=== PATIENT | female | born 1960 | race Caucasian/White ===

== ENCOUNTER → 2016-08-11 | Outpatient (REF) | payer OTHER | LOC: M LAB REF 08:31 | PROVIDERS: ATTEND Physician Assistant Medical | DX: K90.0 Celiac disease (principal) ==

== ENCOUNTER → 2016-12-26 | Outpatient (REF) | payer OTHER ==
[2016-12-26 13:52] LABS: ALBUMIN 4.1 GM/DL (3.2-5.2); ALBUMIN/GLOBULIN RATIO 1.86 (1.00-1.93); ALKALINE PHOSPHATASE 65 U/L (45-117); ALT/SGPT 19 U/L (12-78); ANION GAP 7 MEQ/L (8-16); AST/SGOT 14 U/L (15-37); BILIRUBIN,TOTAL 0.4 MG/DL (0.2-1.0); BLOOD UREA NITROGEN 10 MG/DL (7-18); CARBON DIOXIDE LEVEL 27 MEQ/L (21-32); CHLORIDE LEVEL 110 MEQ/L (98-107); CHOLESTEROL LEVEL 237 MG/DL (<200); CREATININE FOR GFR 0.63 MG/DL (0.55-1.02); GLOMERULAR FILTRATION RATE > 60.0 (>51); GLUCOSE, FASTING 103 MG/DL (70-105); POTASSIUM SERUM 4.4 MEQ/L (3.5-5.1); SODIUM LEVEL 144 MEQ/L (136-145); TOTAL PROTEIN 6.3 GM/DL (6.4-8.2); TRIGLYCERIDES LEVEL 61 MG/DL (<150)
== END ==
LOC: M SFHCPLAZ 09:26
PROVIDERS: ATTEND Physician Assistant
DX: E78.5 Hyperlipidemia, unspecified (principal); K90.0 Celiac disease; H81.09 Meniere's disease, unspecified ear; E55.9 Vitamin D deficiency, unspecified

== ENCOUNTER → 2016-12-26 | Outpatient (CLI) | payer OTHER ==
--- NOTE | 2016-12-26 10:10 | REPMRS ---
Patient History The patient states she had a clinical breast exam in Patient is postmenopausal. Family history of colorectal cancer in mother at age 50 or over and colorectal cancer in 3 maternal uncles at age 50 or over. Digital Woman Screen Mammo: December 26, 2016 - Exam #: [id number] Bilateral CC and MLO view(s) were taken. Technologist: Marcela Christianson, Technologist Prior study comparison: October 15, 2015, digital woman screen mammo performed at [facility]. April 18, 2014, bilateral digital mammo screening bilat, performed at [facility]. FINDINGS: There are scattered fibroglandular densities. There has been no change in the appearance of the mammogram from the prior studies. There is a mild amount of residual fibroglandular tissue which is fairly symmetric. There is no interval development of dominant mass, architectural distortion, or clustered microcalcification suggestive of malignancy. ASSESSMENT: BI-RADS/ACR category 1 mammogram. Negative. Recommendation Routine screening mammogram in 1 year (for women over age 40). This mammogram was interpreted with the aid of an FDA-approved computer-aided dectection system. Electronically Signed By: Levi Bull MD 12/26/16 [id number]
== END ==
LOC: M WHC 08:25
PROVIDERS: ATTEND Nurse Practitioner Family
DX: Z12.31 Encounter for screening mammogram for malignant neoplasm of breast (principal); Z78.0 Asymptomatic menopausal state; Z80.0 Family history of malignant neoplasm of digestive organs

== ENCOUNTER → 2017-02-06 | Outpatient (REF) | payer OTHER | LOC: M SFHCLERA 11:15 | PROVIDERS: ATTEND Dermatology | DX: D23.62 Other benign neoplasm of skin of left upper limb, including shoulder (principal) ==

== ENCOUNTER → 2017-02-13 | Outpatient (CLI) | payer OTHER ==
[~2017-02-13] MED LIST: E-Z-PAQUE 96% w/w SUSP 176GM BTL As Ordered ONE
--- NOTE | 2017-02-13 16:02 | REP ---
SMALL BOWEL FOLLOW THROUGH: The procedure was performed by LACEY Mckeon under the direct supervision of Dr. Bull. Standard barium small bowel series was performed with multiple overhead radiographs. In addition the small bowel was fluoroscopically examined. FINDINGS: The small bowel is normal in course and caliber. There are intrinsic and extrinsic mass lesions identified. The transit time was 2 hours which is within normal limits. During fluoroscopy gentle palpation of the bowel showed it to be freely movable and pliable with no fixed or angulated loops. Spot films of the terminal ileum show it to be within normal limits. IMPRESSION: Unremarkable small bowel series. Fluoroscopy time is 0.33 minutes. Reviewed by LACEY Torres 02/13/2017 04:23 PEdited and Signed by Levi Bull MD 02/14/2017 08:35 A
== END ==
LOC: M RAD 10:16
PROVIDERS: ATTEND Physician Assistant Medical
DX: K90.0 Celiac disease (principal)

== ENCOUNTER → 2017-03-03 | Outpatient (REF) | payer OTHER | LOC: M LAB REF 10:30 | PROVIDERS: ATTEND Physician Assistant Medical | DX: K90.0 Celiac disease (principal) ==

== ENCOUNTER 2017-11-04 18:33 | Emergency (ER) | payer OTHER ==
[2017-11-04] MEDS: IBUPROFEN 800 MG TAB PO (20:40)
== END 2017-11-04 21:54 | disposition home or self-care (01) ==
LOC: M ED 18:33
DX: S82.452A Displaced comminuted fracture of shaft of left fibula, initial encounter for closed fracture (principal); W10.9XXA Fall (on) (from) unspecified stairs and steps, initial encounter; Y92.89 Other specified places as the place of occurrence of the external cause; Z88.2 Allergy status to sulfonamides
CPT/HCPCS: 73564

== ENCOUNTER → 2017-12-27 | Outpatient (CLI) | payer OTHER | LOC: M WHC 10:55 | DX: Z12.31 Encounter for screening mammogram for malignant neoplasm of breast (principal); K90.0 Celiac disease ==

== ENCOUNTER → 2018-02-20 | Outpatient (REF) | payer OTHER ==
[2018-02-20 16:18] LABS: D-DIMER QUANT < 270.0 ng/ml (<500)
[2018-02-20 16:40] LABS: ALBUMIN/GLOBULIN RATIO 1.43 (1.00-1.93); ALKALINE PHOSPHATASE 73 U/L (45-117); ALT/SGPT 18 U/L (12-78); ANION GAP 9 MEQ/L (8-16); AST/SGOT 11 U/L (7-37); BILIRUBIN,TOTAL 0.3 MG/DL (0.2-1.0); BLOOD UREA NITROGEN 10 MG/DL (7-18); CALCIUM LEVEL 9.4 MG/DL (8.5-10.1); CARBON DIOXIDE LEVEL 28 MEQ/L (21-32); CHLORIDE LEVEL 109 MEQ/L (98-107); GLOMERULAR FILTRATION RATE > 60.0 (>51); GLUCOSE, FASTING 89 MG/DL (70-100); POTASSIUM SERUM 4.6 MEQ/L (3.5-5.1); SODIUM LEVEL 146 MEQ/L (136-145); TOTAL PROTEIN 6.8 GM/DL (6.4-8.2)
[2018-02-20 16:49] LABS: PTH INTACT 61.4 PG/ML (18.5-88.0)
[2018-02-24 14:16] LABS: ALK PHOSPHATASE BONE SPECIFIC 14.8 ug/L (.)
== END ==
LOC: M SFHCPLAZ 12:14
DX: M79.89 Other specified soft tissue disorders (principal)

== ENCOUNTER → 2018-03-03 | Outpatient (CLI) | payer OTHER ==
[2018-03-06 14:22] LABS: TISSUE TRANSGLUTAMINASE IgA <2 U/mL (0-3)
== END ==
LOC: M ADAMS 11:53
DX: K90.0 Celiac disease (principal)
CPT/HCPCS: 86256

== ENCOUNTER 2018-03-06 12:22 | Outpatient (CLI) | payer OTHER ==
[2018-03-06] MEDS: ZOLEDRONIC ACID 5 MG in APPROPRIATE DILUENT 1 EA IV (13:23)
== END 2018-03-06 14:10 | disposition home or self-care (01) ==
LOC: M INFU 12:22
DX: M81.0 Age-related osteoporosis without current pathological fracture (principal); I25.10 Atherosclerotic heart disease of native coronary artery without angina pectoris; E78.5 Hyperlipidemia, unspecified; K90.0 Celiac disease; H93.13 Tinnitus, bilateral; M26.609 Unspecified temporomandibular joint disorder, unspecified side; M25.559 Pain in unspecified hip
CPT/HCPCS: J3489

== ENCOUNTER 2018-03-09 02:58 | Emergency (ER) | payer OTHER ==
[2018-03-09] MEDS: ONDANSETRON 4MG/2ML VIAL (J2405) IV (03:45)
[2018-03-09] MEDS: NS 1,000 ML IV (03:45)
[2018-03-09] MEDS: MORPHINE 4 MG/ML 1ML VIAL/SYRINGE (J2270) IV ×2 (03:54→04:19)
[2018-03-09 04:05] LABS: BASO % 0.4 % (0.0-1.0); EOS % 0.4 % (0.0-3.0); HEMATOCRIT 39.7 % (36.0-47.0); HEMOGLOBIN 13.5 g/dl (12.0-15.5); IMMATURE GRANULOCYTE % 0.3 % (0-3.0); LYMPH # 0.6 10^3/uL (1.5-4.5); LYMPH % 6.4 % (24.0-44.0); MEAN CORPUSCULAR HEMOGLOBIN 32.1 pg (27.0-33.0); MEAN CORPUSCULAR VOLUME 94.5 fl (80.0-96.0); MONO # 0.4 10^3/uL (0.0-0.8); MONO % 4.5 % (0.0-5.0); NEUTROPHILS # 7.8 10^3/uL (1.8-7.7); RED CELL DISTRIBUTION WIDTH 12.4 % (11.5-14.5); WHITE BLOOD COUNT 8.9 10^3/uL (4.0-10.0)
[2018-03-09 04:10] LABS: LACTIC ACID SEPSIS PROTOCOL 0.9 MMOL/L (0.4-2.0)
[2018-03-09 04:11] LABS: ALBUMIN 3.7 GM/DL (3.2-5.2); ALKALINE PHOSPHATASE 56 U/L (45-117); ALT/SGPT 26 U/L (12-78); ANION GAP 12 MEQ/L (8-16); AST/SGOT 25 U/L (7-37); BILIRUBIN,DIRECT < 0.1 MG/DL (0.0-0.2); BILIRUBIN,TOTAL 0.3 MG/DL (0.2-1.0); BLOOD UREA NITROGEN 12 MG/DL (7-18); CALCIUM LEVEL 8.1 MG/DL (8.5-10.1); CARBON DIOXIDE LEVEL 26 MEQ/L (21-32); CHLORIDE LEVEL 105 MEQ/L (98-107); CPK CREATINE PHOSPHOKINASE 61 U/L (26-192); CREATININE FOR GFR 0.71 MG/DL (0.55-1.30); GLOMERULAR FILTRATION RATE > 60.0 (>51); GLUCOSE, FASTING 125 MG/DL (70-100); LIPASE 102 U/L (73-393); POTASSIUM SERUM 3.2 MEQ/L (3.5-5.1); SODIUM LEVEL 143 MEQ/L (136-145); TOTAL PROTEIN 7.4 GM/DL (6.4-8.2); TROPONIN I < 0.02 NG/ML (< 0.10)
[2018-03-09 04:12] LABS: CK-MB VALUE MASS 1.1 NG/ML (<3.6)
[2018-03-09 04:32] LABS: POS COUNT POS FLAG
[2018-03-09] MEDS ORDERED: ISOVUE-370 76% 100ML VIAL (Q9967) As Ordered (04:35)
[2018-03-09] MEDS: POTASSIUM CHLORIDE 10 MEQ SR TABLET PO (06:13)
== END 2018-03-09 06:26 | disposition home or self-care (01) ==
LOC: M ED 02:58
DX: E87.6 Hypokalemia (principal); R94.31 Abnormal electrocardiogram [ECG] [EKG]; M81.0 Age-related osteoporosis without current pathological fracture; H81.09 Meniere's disease, unspecified ear; E55.9 Vitamin D deficiency, unspecified; Z80.0 Family history of malignant neoplasm of digestive organs; Z88.1 Allergy status to other antibiotic agents; Z88.2 Allergy status to sulfonamides
CPT/HCPCS: J2270

== ENCOUNTER → 2018-03-27 | Outpatient (REF) | payer OTHER ==
[2018-03-27 14:05] LABS: ANION GAP 10 MEQ/L (8-16); BLOOD UREA NITROGEN 13 MG/DL (7-18); CALCIUM LEVEL 9.4 MG/DL (8.5-10.1); CARBON DIOXIDE LEVEL 26 MEQ/L (21-32); CHLORIDE LEVEL 108 MEQ/L (98-107); CREATININE FOR GFR 0.62 MG/DL (0.55-1.30); GLOMERULAR FILTRATION RATE > 60.0 (>51); GLUCOSE, FASTING 93 MG/DL (70-100); MAGNESIUM LEVEL 2.3 MG/DL (1.8-2.4); POTASSIUM SERUM 4.5 MEQ/L (3.5-5.1); SODIUM LEVEL 144 MEQ/L (136-145)
== END ==
LOC: M SFHCADAM 08:05
DX: E87.6 Hypokalemia (principal); M81.0 Age-related osteoporosis without current pathological fracture

== ENCOUNTER 2018-05-14 07:35 | Day surgery (SDC) | payer OTHER ==
[2018-05-14] MEDS ORDERED: LIDOCAINE 2% INJ 100 MG/5 ML SDV (FOR ANES.) As Ordered (07:43)
[2018-05-14] MEDS ORDERED: PROPOFOL 200 MG/20 ML VIAL As Ordered ×2 (08:07→08:57)
[2018-05-14] MEDS ORDERED: NS 1,000 ML IV (08:30)
== END 2018-05-14 09:37 | disposition home or self-care (01) ==
LOC: M OPP 07:35
DX: Z12.11 Encounter for screening for malignant neoplasm of colon (principal); Z86.010 Personal history of colon polyps; Z80.0 Family history of malignant neoplasm of digestive organs; K90.0 Celiac disease; H81.09 Meniere's disease, unspecified ear; Z78.0 Asymptomatic menopausal state; Z91.89 Other specified personal risk factors, not elsewhere classified; Z88.2 Allergy status to sulfonamides; Z88.8 Allergy status to other drugs, medicaments and biological substances; Z83.3 Family history of diabetes mellitus; Z83.79 Family history of other diseases of the digestive system
CPT/HCPCS: 45378

== ENCOUNTER → 2018-05-22 | Outpatient (CLI) | payer OTHER | LOC: M ADAMS 15:24 | DX: M40.204 Unspecified kyphosis, thoracic region (principal); M51.34 Other intervertebral disc degeneration, thoracic region | CPT/HCPCS: 72070 ==

== ENCOUNTER → 2019-02-09 | Outpatient (REF) | payer OTHER ==
[~2019-02-09] MED LIST changes: +CALC600T60 PO; -E-Z-PAQUE 96% w/w SUSP 176GM BTL As Ordered ONE; +VITA200015 PO; +VITA50005 PO; +ZOFR4TAB14 PO
[2019-02-09 10:34] LABS: IONIZED CALCIUM 4.8 MG/DL (4.5-5.3)
[2019-02-09 10:57] LABS: CHOLESTEROL RISK RATIO 2.823 (<5)
[2019-02-11 12:04] LABS: TOTAL 25(OH) VITAMIN D 25.6 NG/ML (30.0-100.0)
== END ==
LOC: M SFHCADAM 08:41
PROVIDERS: ATTEND Family Medicine
DX: M81.0 Age-related osteoporosis without current pathological fracture (principal); Z13.1 Encounter for screening for diabetes mellitus; E78.2 Mixed hyperlipidemia; E55.9 Vitamin D deficiency, unspecified

== ENCOUNTER → 2019-03-14 | Outpatient (REF) | payer OTHER | LOC: M LABDRWAD 18:58 | PROVIDERS: ATTEND Physician Assistant Medical | DX: K90.0 Celiac disease (principal) ==

== ENCOUNTER → 2019-03-22 | Outpatient (CLI) | payer OTHER ==
[~2019-03-22] MED LIST changes: +ISOVUE-370 76% 100ML VIAL (Q9967) As Ordered ONE
--- NOTE | 2019-03-22 14:57 | REP ---
CT ABDOMEN WITH IV BUT WITHOUT ORAL CONTRAST: Dual-phase postcontrast imaging. HISTORY: Adrenal nodule. Comparison CT study March 09, 2018 showed a left adrenal nodule measuring 1.1 x 1.7 cm. The 12-month followup versus a noncontrast CT study were suggested as options. CT CONTRAST DOSE: 100 mL of intravenous Isovue [address] TECHNIQUE: Portal venous phase and 15-minute delayed phase postcontrast images were acquired. [address] FINDINGS: Today's images confirm the presence of an oval-shaped nodular thickening of the left adrenal gland as seen on March 09, 2018. It has not enlarged. The relative adrenal nodule washout kinetics were calculated. 56.5% washout was observed. Values greater than 40% are consistent with benign adrenal adenoma. The lung bases remain clear. Liver and spleen are normal in size homogeneous in texture. No abnormalities noted in the gallbladder or the pancreas. There is a peripheral cortical cyst at the lower pole left kidney projecting posterior to the descending colon, which is unchanged and measuring 4.1 cm in greatest diameter. No hydronephrosis is seen. No renal masses observed. IMPRESSION: Findings consistent with small stable benign left adrenal adenoma. A peripheral cyst lower pole left kidney. This is also unchanged. Electronically Signed by Tyson Calix MD 03/22/2019 03:02 P
== END ==
LOC: M RAD 12:11
PROVIDERS: ATTEND Family Medicine
DX: E27.9 Disorder of adrenal gland, unspecified (principal)

== ENCOUNTER → 2019-06-01 | Outpatient (CLI) | payer OTHER ==
[~2019-06-01] MED LIST changes: -ISOVUE-370 76% 100ML VIAL (Q9967) As Ordered ONE
== END ==
LOC: M LABDRWAD 08:55
PROVIDERS: ATTEND Internal Medicine Endocrinology, Diabetes & Metabolism
DX: E55.9 Vitamin D deficiency, unspecified (principal)

== ENCOUNTER → 2019-06-01 | Outpatient (CLI) | payer OTHER ==
[2019-06-01 17:51] LABS: BASO # 0.1 10^3/uL (0.0-0.2); BASO % 1.1 % (0.0-1.0); EOS # 0.1 10^3/uL (0.0-0.5); EOS % 1.8 % (0.0-3.0); HEMATOCRIT 36.6 % (36.0-47.0); HEMOGLOBIN 11.9 g/dl (12.0-15.5); LYMPH # 1.2 10^3/uL (1.5-5.0); MEAN CORPUSCULAR HEMOGLOBIN 32.2 pg (27.0-33.0); MEAN CORPUSCULAR HGB CONC 32.5 g/dl (32.0-36.5); MEAN CORPUSCULAR VOLUME 98.9 fl (80.0-96.0); MONO # 0.4 10^3/uL (0.0-0.8); MONO % 9.7 % (0.0-5.0); NEUTROPHILS # 2.6 10^3/uL (1.5-8.5); NEUTROPHILS % 59.2 % (36.0-66.0); PLATELET COUNT, AUTOMATED 260 10^3/uL (150-450); WHITE BLOOD COUNT 4.4 10^3/uL (4.0-10.0)
[2019-06-01 18:04] LABS: ALBUMIN 3.9 GM/DL (3.2-5.2); ALT/SGPT 19 U/L (12-78); BILIRUBIN,TOTAL 0.5 MG/DL (0.2-1.0); BLOOD UREA NITROGEN 12 MG/DL (7-18); CALCIUM LEVEL 9.1 MG/DL (8.8-10.2); CARBON DIOXIDE LEVEL 28 MEQ/L (21-32); CHLORIDE LEVEL 109 MEQ/L (98-107); CHOLESTEROL LEVEL 214 MG/DL (<200); CHOLESTEROL RISK RATIO 2.517 (<5); GLOMERULAR FILTRATION RATE > 60.0 (>45); GLUCOSE, FASTING 88 MG/DL (70-100); HDL CHOLESTEROL 85 MG/DL (>40); LDL CHOLESTEROL 120 MG/DL (<100); NON-HDL-C 129 MG/DL; POTASSIUM SERUM 4.7 MEQ/L (3.5-5.1); SODIUM LEVEL 142 MEQ/L (136-145); TOTAL PROTEIN 6.6 GM/DL (6.4-8.2); TRIGLYCERIDES LEVEL 45 MG/DL (<150)
[2019-06-01 18:18] LABS: HEMOGLOBIN A1c 5.3 %
== END ==
LOC: M LABDRWAD 08:52
PROVIDERS: ATTEND Physician Assistant
DX: E78.2 Mixed hyperlipidemia (principal); M81.8 Other osteoporosis without current pathological fracture; R73.01 Impaired fasting glucose

== ENCOUNTER → 2019-12-30 | Outpatient (CLI) | payer OTHER ==
--- NOTE | 2020-01-06 09:05 | DEXA ---
AP SPINE L1 - L4 0.998 -1.2 0.1 LT FEMUR TOTAL 0.848 -1.3 -0.3 LT NECK 0.734 -2.2 -0.9 RT FEMUR TOTAL 0.910 -0.8 0.2 RT NECK 0.792 -1.8 -0.5 TOTAL BODY TOTAL OTHER COMMENTS: There is low bone density of the spine and hips. The density of the spine is increased 10.5% since 12/27/2017. The density of the left hip has increased 2.9% since 12/27/2017. The density of the right hip has increased 5.4% since 12/27/2017. The increased density of the spine does represent a significant change. The increased density of the left hip does represent a significant change. The increased density of the right hip does represent significant change. FOLLOW-UP: Recommendation for the next bone density exam: 2 years. MALDONADO
== END ==
LOC: M WHC 12:47
PROVIDERS: ATTEND Internal Medicine Endocrinology, Diabetes & Metabolism
DX: M85.851 Other specified disorders of bone density and structure, right thigh (principal); M85.852 Other specified disorders of bone density and structure, left thigh; M85.88 Other specified disorders of bone density and structure, other site

== ENCOUNTER → 2020-02-14 | Outpatient (CLI) | payer OTHER ==
--- NOTE | 2020-03-05 09:45 | REPMRS ---
Patient History The patient states she has not had a clinical breast exam in over a year. Patient is postmenopausal. Family history of colorectal cancer at age 50 or over in maternal uncle, colorectal cancer at age 50 or over in maternal uncle, colorectal cancer at age 50 or over in mother, colorectal cancer at age 50 or over in maternal uncle, colorectal cancer at age 50 or over in maternal uncle. No Hormone Replacement Therapy Digital Woman Screen Mammo: February 14, 2020 - Exam #: [id number] Bilateral CC and MLO view(s) were taken. Technologist: Yolanda Lagunas, Technologist Prior study comparison: December 27, 2017, bilateral digital woman screen mammo performed at [facility]. December 26, 2016, digital woman screen mammo performed at [facility]. October 15, 2015, digital woman screen mammo performed at [facility]. FINDINGS: There are scattered fibroglandular densities. The Volpara volumetric breast density category is:B. There has been no change in the appearance of the mammogram from the prior studies. There is a mild amount of scattered fibroglandular density which is fairly symmetric. There is no interval development of dominant mass, architectural distortion, or grouped microcalcification suggestive of malignancy. 3-D tomosynthesis shows no additional findings. Report was delayed due to a protracted computer network disruption experienced by this facility. Assessment: BI-RADS/ACR category 1 mammogram. Negative Mammogram. Recommendation Routine screening mammogram of both breasts in 1 year (for women over age 40). This patient's Lifetime Breast Cancer Risk is estimated at 5.8 %. This mammogram was interpreted with the aid of an FDA-approved computer-aided dectection system. Electronically Signed By: Mahendra Calix MD 03/05/20 0944
== END ==
LOC: M WHC 17:09
PROVIDERS: ATTEND Physician Assistant
DX: Z12.31 Encounter for screening mammogram for malignant neoplasm of breast (principal); Z78.0 Asymptomatic menopausal state

== ENCOUNTER → 2020-06-03 | Outpatient (REF) | payer OTHER ==
[2020-06-03 13:37] LABS: ALBUMIN 3.9 GM/DL (3.2-5.2); ALT/SGPT 18 U/L (12-78); BILIRUBIN,TOTAL 0.5 MG/DL (0.2-1.0); BLOOD UREA NITROGEN 15 MG/DL (7-18); CALCIUM LEVEL 9.7 MG/DL (8.8-10.2); CARBON DIOXIDE LEVEL 30 MEQ/L (21-32); CHLORIDE LEVEL 108 MEQ/L (98-107); CHOLESTEROL LEVEL 251 MG/DL (<200); CHOLESTEROL RISK RATIO 2.788 (<5); GLOMERULAR FILTRATION RATE > 60.0 (>45); GLUCOSE, FASTING 90 MG/DL (70-100); HDL CHOLESTEROL 90 MG/DL (>40); LDL CHOLESTEROL 152 MG/DL (<100); NON-HDL-C 161 MG/DL; POTASSIUM SERUM 4.7 MEQ/L (3.5-5.1); SODIUM LEVEL 142 MEQ/L (136-145); TOTAL PROTEIN 6.4 GM/DL (6.4-8.2); TRIGLYCERIDES LEVEL 46 MG/DL (<150)
== END ==
LOC: M LABDRWAD 12:19
PROVIDERS: ATTEND Physician Assistant Medical
DX: E78.2 Mixed hyperlipidemia (principal); K90.0 Celiac disease

== ENCOUNTER → 2020-06-29 | Outpatient (REF) | payer OTHER | LOC: M LABDRWAD 16:53 | PROVIDERS: ATTEND Nurse Practitioner Family | DX: E55.9 Vitamin D deficiency, unspecified (principal); M85.89 Other specified disorders of bone density and structure, multiple sites ==

== ENCOUNTER → 2020-07-28 | Outpatient (CLI) | payer OTHER ==
--- NOTE | 2020-07-28 17:43 | REP ---
INDICATION: SOLITARY PULMONARY NODULE. COMPARISON: Comparison CT study of the chest July 06, 2020. Left upper lobe pulmonary nodule. TECHNIQUE: Fifty-four minutes following the intravenous injection of a 8.15 mCi dose of F-18 FDG, three-dimensional PET scintigraphy is acquired from the skull base to the proximal thighs. Triplanar noncontrast CT scanning is acquired through the same anatomic range for attenuation correction, and image registration with scan parameters optimized to minimize radiation exposure to the patient. PET scintigraphy and CT datasets were fused and displayed on a workstation with multiplanar and projection display capability. FINDINGS: Head and neck soft tissues are unremarkable. The known pleural based left apical nodular density seen on recent CT study shows no abnormal uptake. Maximum standard uptake value is less than 1, 0.95. No other abnormal hypermetabolic uptake is seen within the chest. No evidence of adenopathy or mediastinal mass seen. In the abdomen and pelvis there is normal distribution of tracer to the liver, spleen, gastrointestinal, and genitourinary systems. There is minimal uptake in the small left adrenal nodule maximum standard uptake value 2.64. This nodule has been stable morphologically since March 09, 2018 and is consistent with a benign adenoma. No other abnormal FDG distribution is seen in the abdomen or pelvis. IMPRESSION: The nodule in the left lung apex shows no abnormal FDG tracer accumulation. Continued follow-up is advised. Minimal uptake is seen in a stable left adrenal nodule consistent with an adenoma. <Electronically signed by Mahendra Calix > 07/28/20 [id number]
== END ==
LOC: M PLARAD 11:24
PROVIDERS: ATTEND Internal Medicine Pulmonary Disease
DX: R91.1 Solitary pulmonary nodule (principal)
CPT/HCPCS: 78815; A9552

== ENCOUNTER → 2021-02-10 | Outpatient (CLI) | payer OTHER ==
--- NOTE | 2021-02-10 12:07 | REP ---
INDICATION: SOLITARY PULMONARY NODULE COMPARISON: Multiple the latest 07/06/2020 also without contrast TECHNIQUE: Standard helical technique without intravenous contrast FINDINGS: The mediastinum and pulmonary lola are stable. No mass or adenopathy has developed. There are no pleural or pericardial effusions. There is no change in appearance of the imaged upper abdomen or imaged osseous structures. There is biapical pleuroparenchymal scarring status quo. There is an irregular density seen in the apicoposterior segment of the left upper lobe. Its maximal dimension today measures 1.2 cm and on the latest prior 1 cm. Additionally, it appears slightly more dense. No new abnormal nodules, masses, or opacities have developed. IMPRESSION: The irregular density seen in the apicoposterior segment of the left upper lobe appears to have increased in size. Additionally, it appears somewhat more dense. Review of the prior PET scan of 07/28/2020 showed no abnormal hypermetabolic activity seen in this region, however, I suggest repeat PET-CT for comparison. <Electronically signed by Loki Wooten > 02/10/21 [id number]
== END ==
LOC: M RAD 11:12
PROVIDERS: ATTEND Internal Medicine Pulmonary Disease
DX: R91.1 Solitary pulmonary nodule (principal)

== ENCOUNTER → 2021-02-16 | Outpatient (REF) | payer OTHER ==
[2021-02-16 13:02] LABS: PLATELET COUNT, AUTOMATED 294 10^3/uL (150-450)
[2021-02-16 13:15] LABS: INR 0.85; PARTIAL THROMBOPLASTIN TIME 26.3 SECONDS (25.9-37.0)
== END ==
LOC: M LAB REF 12:50
PROVIDERS: ATTEND Internal Medicine Pulmonary Disease
DX: R91.1 Solitary pulmonary nodule (principal)

== ENCOUNTER → 2021-03-09 | Outpatient (REF) | payer OTHER ==
[2021-03-09 13:36] LABS: ALBUMIN 3.7 GM/DL (3.2-5.2); ALT/SGPT 17 U/L (12-78); BILIRUBIN,TOTAL 0.5 MG/DL (0.2-1.0); BLOOD UREA NITROGEN 15 MG/DL (7-18); CALCIUM LEVEL 9.1 MG/DL (8.8-10.2); CARBON DIOXIDE LEVEL 30 MEQ/L (21-32); CHLORIDE LEVEL 110 MEQ/L (98-107); CHOLESTEROL LEVEL 237 MG/DL (<200); CHOLESTEROL RISK RATIO 2.604 (<5); CREATININE FOR GFR 0.63 MG/DL (0.55-1.30); GLOMERULAR FILTRATION RATE > 60.0 (>45); GLUCOSE, FASTING 90 MG/DL (70-100); HDL CHOLESTEROL 91 MG/DL (>40); LDL CHOLESTEROL 133 MG/DL (<100); NON-HDL-C 146 MG/DL; POTASSIUM SERUM 4.7 MEQ/L (3.5-5.1); SODIUM LEVEL 142 MEQ/L (136-145); TOTAL PROTEIN 6.2 GM/DL (6.4-8.2); TRIGLYCERIDES LEVEL 66 MG/DL (<150)
== END ==
LOC: M LABDRWAD 12:30
PROVIDERS: ATTEND Nurse Practitioner Family
DX: Z00.00 Encounter for general adult medical examination without abnormal findings (principal); K90.0 Celiac disease
CPT/HCPCS: 36415; 80053; 80061; 83516; G0472

== ENCOUNTER → 2021-03-25 | Outpatient (CLI) | payer OTHER ==
[~2021-03-25] MED LIST changes: +ACETAMINOPHEN 325 MG TAB As Ordered ONE; +ACETAMINOPHEN TAB 650MG DOSE (2X325MG) PO PRN; +D3 U5000 PO; +HOME MED LIST COMPLETE! XX SCH; +LIDOCAINE 1% MDV 20ML VIAL As Ordered ONE; +NOXI1TAB PO; +SODIUM BICARBONATE 8.4% INJ 50MEQ 50 ML VIAL As Ordered ONE
[2021-03-25 08:52] LABS: PLATELET COUNT, AUTOMATED 295 10^3/uL (150-450)
[2021-03-25 09:05] LABS: INR 0.88; PROTHROMBIN TIME 12.3 SECONDS (12.7-14.5)
[2021-03-25 09:06] LABS: PARTIAL THROMBOPLASTIN TIME 26.2 SECONDS (25.9-37.0)
--- NOTE | 2021-03-25 10:23 | REP ---
INDICATION: POST LEFT LUNG BIOPSY, 1 VIEW. COMPARISON: CT images today and 02/10/2021. TECHNIQUE: Single view chest. FINDINGS: There is a small left apical pneumothorax status post left lung biopsy. The heart and mediastinum are within normal limits. IMPRESSION: Small left apical pneumothorax status post left lung biopsy. <Electronically signed by Levi Bull > 03/25/21 [id number]
--- NOTE | 2021-03-25 13:38 | REP ---
INDICATION: POST BIOPSY COMPARISON: 03/25/2021 at 10:16 a.m. TECHNIQUE: Portable AP view of the chest FINDINGS: 10% left apical pneumothorax again noted. Mediastinum and cardiac silhouette are normal. Right hemithorax is clear. No evidence for consolidation or effusion. Skeletal structures are intact. IMPRESSION: Small left apical pneumothorax again noted similar to prior examination. <Electronically signed by Srinivas Payne > 03/25/21 [id number]
[2021-03-25 14:15] VITALS: BP 152/90
--- NOTE | 2021-03-25 17:00 | REP ---
INDICATION: SOLEDAD LUNG NODULE. COMPARISON: None. TECHNIQUE: The procedure is performed by Melanie Hernandez [facility], under the direct supervision of Dr. Bull. The risks and benefits of the procedure were explained to the patient and informed consent was obtained both orally and written. Directly prior to the start of the procedure, a formal timeout was done in the exam room. The left upper lobe lung mass was localized using CT guidance. Skin was prepped and draped in the usual sterile fashion. Five ml of 1% lidocaine 10 mg/ml was used as a local anesthetic. FINDINGS: Using CT guidance a 19/20 gauge coaxial needle biopsy system was inserted and advanced into the nodule. Four core biopsy samples were obtained, the 1st biopsy had adequate tissue, the remaining 3 did not yield adequate tissue. CT images obtained directly after the biopsy showed evidence of small apical pneumothorax. The patient was placed on 2 L of oxygen via nasal cannula and was followed with to serial chest x-rays. After the appropriate amount of monitored convalescence the patient was discharged from the department. IMPRESSION: CT-guided left upper lobe lung mass biopsy. <Electronically signed by Melanie Hernandez > 03/25/21 1511 <Electronically signed by Levi Bull > 03/25/21 [id number]
== END ==
LOC: M IRPRO 08:08
PROVIDERS: ATTEND Internal Medicine Pulmonary Disease
DX: J95.811 Postprocedural pneumothorax (principal); R91.1 Solitary pulmonary nodule

== ENCOUNTER → 2021-03-26 | Outpatient (CLI) | payer OTHER ==
[~2021-03-26] MED LIST changes: -ACETAMINOPHEN 325 MG TAB As Ordered ONE; -ACETAMINOPHEN TAB 650MG DOSE (2X325MG) PO PRN; -HOME MED LIST COMPLETE! XX SCH; -LIDOCAINE 1% MDV 20ML VIAL As Ordered ONE; -SODIUM BICARBONATE 8.4% INJ 50MEQ 50 ML VIAL As Ordered ONE
== END ==
LOC: M RAD 09:02
PROVIDERS: ATTEND Internal Medicine Pulmonary Disease
DX: R91.1 Solitary pulmonary nodule (principal)

== ENCOUNTER → 2021-05-25 | Outpatient (CLI) | payer OTHER ==
--- NOTE | 2021-05-26 07:51 | REPMRS ---
Patient History The patient states she has not had a clinical breast exam in over a year. Patient is postmenopausal. Family history of colorectal cancer at age 50 or over in maternal uncle, colorectal cancer at age 50 or over in maternal uncle, colorectal cancer at age 50 or over in mother, colorectal cancer at age 50 or over in maternal uncle, colorectal cancer at age 50 or over in maternal uncle, breast cancer at age 70 in maternal aunt. No Hormone Replacement Therapy Patient states no breast complaints today. Patient has signed MRS History Sheet. Digital Woman Screen Mammo: May 25, 2021 - Exam #: [id number] Bilateral CC and MLO view(s) were taken. Technologist: Oma Espino Public Address Technician Prior study comparison: February 14, 2020, bilateral digital woman screen mammo performed at [facility]. December 27, 2017, bilateral digital woman screen mammo performed at [facility]. FINDINGS: There are scattered fibroglandular densities. Screening. Digital screening (2D) mammography was performed bilaterally in the CC and MLO projections. Additionally, breast tomosynthesis (3D mammography) was performed bilaterally in the CC and MLO projections. Todays exam was compared to the prior exam/exams. By history, the patient has no complaints of a palpable breast abnormality or other significant breast complaints. The Volpara volumetric breast density category is B, there are scattered areas of fibroglandular densities. The breasts are unchanged in size and shape. There are no wenceslao-soft tissue densities or spiculated masses. There is no internal architectural distortion. There are no suspicious wenceslao-calcific clusters. Skin thickening or nipple retraction is not present. IMPRESSION: BI-RADS Category 2- Benign Findings. There is no evidence of malignant alteration of the breasts. Followup examination recommended in one year. The lifetime Tyrer-Cuzick score is 7.7% This mammogram was read with the assistance of [employer],an FDA approved computer aided detection system for mammography. Negative x-ray reports should not delay surgical consultation if a dominant or clinically suspicious mass is present. Not all breast cancers can be identified by mammography. Therefore, we recommend that you continue to perform regular breast self-examination and physical examination and then promptly contact your physician of any concerns or changes. Adenosis and dense breasts may obscure an underlying neoplasm. No significant changes when compared with prior studies. Assessment: BI-RADS/ACR category 2 mammogram. Benign Findings. Recommendation Routine screening mammogram of both breasts in 1 year. Electronically Signed By: Reyes Trevizo MD 05/26/21 [id number]
== END ==
LOC: M WHC 15:05
PROVIDERS: ATTEND Nurse Practitioner Family
DX: Z12.31 Encounter for screening mammogram for malignant neoplasm of breast (principal); M81.0 Age-related osteoporosis without current pathological fracture; Z78.0 Asymptomatic menopausal state; Z80.0 Family history of malignant neoplasm of digestive organs

== ENCOUNTER → 2022-03-07 | Outpatient (CLI) | payer OTHER ==
[2022-03-07 09:27] LABS: ALBUMIN 3.6 GM/DL (3.2-5.2); ALT/SGPT 15 U/L (12-78); BILIRUBIN,TOTAL 0.4 MG/DL (0.2-1.0); BLOOD UREA NITROGEN 11 MG/DL (7-18); CALCIUM LEVEL 9.3 MG/DL (8.8-10.2); CARBON DIOXIDE LEVEL 27 MEQ/L (21-32); CHLORIDE LEVEL 108 MEQ/L (98-107); CHOLESTEROL LEVEL 258 MG/DL (<200); CHOLESTEROL RISK RATIO 2.715 (<5); CREATININE FOR GFR 0.62 MG/DL (0.55-1.30); GLOMERULAR FILTRATION RATE > 60.0 (>45); GLUCOSE, FASTING 88 MG/DL (70-100); HDL CHOLESTEROL 95 MG/DL (>40); LDL CHOLESTEROL 151 MG/DL (<100); NON-HDL-C 163 MG/DL; POTASSIUM SERUM 4.6 MEQ/L (3.5-5.1); SODIUM LEVEL 139 MEQ/L (136-145); TOTAL PROTEIN 6.1 GM/DL (6.4-8.2); TRIGLYCERIDES LEVEL 59 MG/DL (<150)
== END ==
LOC: M LAB 07:47
PROVIDERS: ATTEND Nurse Practitioner Family
DX: E78.2 Mixed hyperlipidemia (principal)

== ENCOUNTER → 2022-05-31 | Outpatient (CLI) | payer OTHER | LOC: M WHC 13:46 | PROVIDERS: ATTEND Nurse Practitioner Family | DX: Z12.31 Encounter for screening mammogram for malignant neoplasm of breast (principal) ==

== ENCOUNTER → 2023-02-28 | Outpatient (REF) | payer OTHER ==
[2023-02-28 13:41] LABS: ALBUMIN 3.8 G/DL (3.2-5.2); ALKALINE PHOSPHATASE 42 U/L (46-116); ALT/SGPT 11 U/L (7.0-40); AST/SGOT < 8 U/L (<34); BILIRUBIN,TOTAL 0.5 MG/DL (0.3-1.2); BLOOD UREA NITROGEN 15 MG/DL (9-23); CALCIUM LEVEL 9.3 MG/DL (8.3-10.6); CARBON DIOXIDE LEVEL 29 MMOL/L (20-31); CHLORIDE LEVEL 109 MMOL/L (98-107); CHOLESTEROL LEVEL 233 MG/DL (<200); CHOLESTEROL RISK RATIO 2.58 (<5); CREATININE FOR GFR 0.65 MG/DL (0.55-1.30); GLOMERULAR FILTRATION RATE > 60.0 (>45); GLUCOSE, FASTING 81 MG/DL (74-106); HDL CHOLESTEROL 90.2 MG/DL (>40); NON-HDL-C 142.8 MG/DL; POTASSIUM SERUM 4.7 MMOL/L (3.5-5.1); SODIUM LEVEL 144 MMOL/L (136-145); TOTAL PROTEIN 6.1 G/DL (5.7-8.2); TRIGLYCERIDES LEVEL 74 MG/DL (<150)
== END ==
LOC: M LABDRWAD 12:30
PROVIDERS: ATTEND Nurse Practitioner Family
DX: E78.2 Mixed hyperlipidemia (principal)

== ENCOUNTER → 2023-06-22 | Outpatient (CLI) | payer OTHER | LOC: M WHC 12:52 | PROVIDERS: ATTEND Nurse Practitioner Family | DX: Z12.31 Encounter for screening mammogram for malignant neoplasm of breast (principal); Z13.820 Encounter for screening for osteoporosis ==

== ENCOUNTER → 2023-06-22 | Outpatient (CLI) | payer OTHER | LOC: M WUC 11:48 | PROVIDERS: ATTEND Nurse Practitioner Family | DX: M85.88 Other specified disorders of bone density and structure, other site (principal); M51.36 Other intervertebral disc degeneration, lumbar region; M25.551 Pain in right hip; M79.644 Pain in right finger(s) ==

== ENCOUNTER 2023-10-09 07:47 | Day surgery (SDC) | payer OTHER, MEDICARE ==
[~2023-10-09] VITALS: Ht 162.6 cm; Wt 63.5 kg
[2023-10-09] MEDS: NS 1,000 ML IV ONE (08:15)
[2023-10-09 09:50] VITALS: TEMP 97.7
[2023-10-09 10:03] VITALS: BP 113/61; O2SAT 99
[2023-10-09] MEDS ORDERED: propofoL 200 MG/20 ML VIAL As Ordered ONE (10:50)
[2023-10-09] MEDS ORDERED: LIDOCAINE 2% 100MG/5ML SDV (FOR ANES.) As Ordered ONE (10:50)
== END 2023-10-09 10:10 | disposition home or self-care (01) ==
LOC: M OPP 07:47
PROVIDERS: ATTEND Internal Medicine Gastroenterology
DX: Z12.11 Encounter for screening for malignant neoplasm of colon (principal); Z86.010 Personal history of colon polyps; Z80.0 Family history of malignant neoplasm of digestive organs; K63.5 Polyp of colon; K64.8 Other hemorrhoids; K57.30 Diverticulosis of large intestine without perforation or abscess without bleeding; Z88.1 Allergy status to other antibiotic agents; Z88.2 Allergy status to sulfonamides; Z88.8 Allergy status to other drugs, medicaments and biological substances

== ENCOUNTER → 2024-03-12 | Outpatient (CLI) | payer MEDICARE, OTHER ==
[2024-03-12 10:19] LABS: ALBUMIN 3.7 G/DL (3.2-5.2); ALKALINE PHOSPHATASE 47 U/L (46-116); ALT/SGPT 18 U/L (7.0-40); AST/SGOT 13 U/L (<34); BILIRUBIN,TOTAL 0.5 MG/DL (0.3-1.2); BLOOD UREA NITROGEN 20 MG/DL (9-23); CALCIUM LEVEL 9.3 MG/DL (8.3-10.6); CARBON DIOXIDE LEVEL 30 MMOL/L (20-31); CHLORIDE LEVEL 110 MMOL/L (98-107); CHOLESTEROL LEVEL 244 MG/DL (<200); CHOLESTEROL RISK RATIO 3.16 (<5); CREATININE FOR GFR 0.73 MG/DL (0.55-1.30); GLOMERULAR FILTRATION RATE > 60.0 (>45); GLUCOSE, FASTING 91 MG/DL (74-106); POTASSIUM SERUM 4.7 MMOL/L (3.5-5.1); SODIUM LEVEL 142 MMOL/L (136-145); TOTAL PROTEIN 6.1 G/DL (5.7-8.2); TRIGLYCERIDES LEVEL 95 MG/DL (<150)
== END ==
LOC: M PLALAB 07:06
PROVIDERS: ATTEND Nurse Practitioner Family
DX: E78.2 Mixed hyperlipidemia (principal)

== ENCOUNTER → 2025-03-20 | Outpatient (CLI) | payer MEDICARE, OTHER ==
[2025-03-20 12:45] LABS: ALT/SGPT 13 U/L (7.0-40); AST/SGOT 11 U/L (<34); CALCIUM LEVEL 9.4 MG/DL (8.3-10.6); CARBON DIOXIDE LEVEL 28 MMOL/L (20-31); CHLORIDE LEVEL 107 MMOL/L (98-107); CHOLESTEROL LEVEL 248 MG/DL (<200); CHOLESTEROL RISK RATIO 2.75 (<5); CREATININE FOR GFR 0.67 MG/DL (0.55-1.30); GLOMERULAR FILTRATION RATE > 90.0 (>45); LDL CHOLESTEROL 142.7 MG/DL (<100); NON-HDL-C 158.1 MG/DL; POTASSIUM SERUM 4.4 MMOL/L (3.5-5.1); SODIUM LEVEL 145 MMOL/L (136-145); TRIGLYCERIDES LEVEL 77 MG/DL (<150)
== END ==
LOC: M WUC 08:18
PROVIDERS: ATTEND Nurse Practitioner Family
DX: E78.2 Mixed hyperlipidemia (principal); M85.89 Other specified disorders of bone density and structure, multiple sites

== ENCOUNTER → 2025-03-20 | Outpatient (CLI) | payer MEDICARE, OTHER ==
[2025-03-20 12:45] LABS: CALCIUM LEVEL 9.4 MG/DL (8.3-10.6); CARBON DIOXIDE LEVEL 29 MMOL/L (20-31); CHLORIDE LEVEL 107 MMOL/L (98-107); CREATININE FOR GFR 0.67 MG/DL (0.55-1.30); GLOMERULAR FILTRATION RATE > 90.0 (>45); POTASSIUM SERUM 4.5 MMOL/L (3.5-5.1); SODIUM LEVEL 144 MMOL/L (136-145)
== END ==
LOC: M WUC 08:20
PROVIDERS: ATTEND Nurse Practitioner Family
DX: M85.89 Other specified disorders of bone density and structure, multiple sites (principal)

== ENCOUNTER → 2025-04-07 | Outpatient (CLI) | payer MEDICARE, OTHER | LOC: M WUC 11:04 | PROVIDERS: ATTEND Nurse Practitioner Family | DX: R22.0 Localized swelling, mass and lump, head (principal) ==

== ENCOUNTER → 2025-04-22 | Outpatient (CLI) | payer MEDICARE, OTHER ==
[2025-04-22 13:27] LABS: CALCIUM LEVEL 9.7 MG/DL (8.3-10.6); CARBON DIOXIDE LEVEL 28 MMOL/L (20-31); CHLORIDE LEVEL 105 MMOL/L (98-107); CREATININE FOR GFR 0.65 MG/DL (0.55-1.30); GLOMERULAR FILTRATION RATE > 90.0 (>45); POTASSIUM SERUM 4.6 MMOL/L (3.5-5.1); SODIUM LEVEL 141 MMOL/L (136-145)
== END ==
LOC: M WUC 11:04
PROVIDERS: ATTEND Nurse Practitioner Family
DX: M85.89 Other specified disorders of bone density and structure, multiple sites (principal)

== ENCOUNTER → 2025-05-26 | Outpatient (CLI) | payer MEDICARE, OTHER ==
[2025-05-26 15:09] LABS: CALCIUM LEVEL 9.4 MG/DL (8.3-10.6); CARBON DIOXIDE LEVEL 26 MMOL/L (20-31); CHLORIDE LEVEL 108 MMOL/L (98-107); CREATININE FOR GFR 0.66 MG/DL (0.55-1.30); GLOMERULAR FILTRATION RATE > 90.0 (>45); POTASSIUM SERUM 4.8 MMOL/L (3.5-5.1); SODIUM LEVEL 143 MMOL/L (136-145)
== END ==
LOC: M WUC 09:42
PROVIDERS: ATTEND Nurse Practitioner Family
DX: M85.89 Other specified disorders of bone density and structure, multiple sites (principal)

== ENCOUNTER → 2025-06-25 | Outpatient (CLI) | payer MEDICARE, OTHER ==
[2025-06-25 16:13] LABS: CALCIUM LEVEL 9.9 MG/DL (8.3-10.6); CARBON DIOXIDE LEVEL 29 MMOL/L (20-31); CHLORIDE LEVEL 103 MMOL/L (98-107); CREATININE FOR GFR 0.64 MG/DL (0.55-1.30); GLOMERULAR FILTRATION RATE > 90.0 (>45); POTASSIUM SERUM 4.3 MMOL/L (3.5-5.1); SODIUM LEVEL 141 MMOL/L (136-145)
== END ==
LOC: M WUC 12:52
PROVIDERS: ATTEND Nurse Practitioner Family
DX: M85.89 Other specified disorders of bone density and structure, multiple sites (principal)